=== PATIENT | male | born 1975 | race Caucasian/White ===

== ENCOUNTER 2023-02-25 09:44 | Outpatient (CLI) | payer OTHER, SELFPAY ==
--- NOTE | 2023-02-25 | MR_ITS ---
WS: [id number] MRI CERVICAL SPINE NONCONTRAST AND CONTRAST TECHNIQUE: Sagittal T1, T2 and STIR imaging. Axial T2, gradient, and fiesta imaging. CLINICAL INFORMATION: SARCOIDOSIS COMPARISON: None. FINDINGS: Straightening of the normal cervical lordosis. Cord signal is normal. No suspicious lesions within th e cervical cord. No abnormal gadolinium enhancement. No enhancing lesions. C2-C3: Normal. C3-C4: Normal C4-C5: Mild facet arthropathy. Mild RIGHT foraminal narrowing. C5-C6: Mild to moderate facet arthropathy. Mild bilateral bony foraminal narrowing RIGHT greater than LEFT. C6-C7: Minimal disc osteophytic ridging. Moderate facet arthropathy. Mild bilateral bony foraminal na rrowing. Spinal canal is patent. C7-T1: Mild disc osteophytic ridging. Mild facet arthropathy. Mild LEFT and no significant RIGHT fora nathan narrowing. Visualized brain stem structures: Normal. Prevertebral soft tissues: Normal. MR/MR cervical spine wo/w [id number] IMPRESSION: 1. Cord signal is normal. No suspicious lesions in the cervical cord. No signi ficant cord atrophy. 2. No enhancing lesions within the cervical cord. 3. Mild spondylitic changes described above.
--- NOTE | 2023-02-25 | MR_ITS ---
WS: [id number] MRI LUMBAR SPINE WITH CONTRAST TECHNIQUE: Sagittal T1, T2 and STIR imaging. Axial T1 and T2 imaging. Post gadolinium imaging was obt ained. CLINICAL INFORMATION: SARCOIDOSIS COMPARISON: None. FINDINGS: Normal lumbar alignment. No acute compression. No high-grade central canal stenosis. No abnormal gado linium enhancement. No pachymeningeal enhancement. Normal cauda equina nerve rootlets. L1-L2: Mild facet arthropathy. Spinal canal and foramen are patent. L2-L3: No significant disc bulging. Mild facet arthropathy. Spinal canal and foramen are patent L3-L4: Mild annular bulging. Tiny LEFT foraminal protrusion with mild LEFT foraminal narrowing. RIGHT foramen is patent. Mild to moderate facet arthropathy. Slight contact of the exiting LEFT L3 nerve r oot. L4-L5: Mild annular bulging. Moderate facet arthropathy. Mild LEFT and no significant RIGHT foraminal narrowing. L5-S1: Mild annular bulging. Mild facet arthropathy. Mild RIGHT and no significant LEFT foraminal clarke rowing. Visualized pelvic bony structures: Normal. Paravertebral soft tissues: Normal. MR/MR lumbar spine wo/w con [id number] IMPRESSION: 1. No abnormal enhancement in the distal thoracic cord or cauda equina. 2. Small LEFT foraminal protrusion L3-L4 with contact of the exiting LEFT L3 n erve root with mild LEFT foraminal narrowing. 3. Mild annular bulging L4-L5 with mild LEFT foraminal narrowing. 4. Mild facet arthropathy L3-L5.
--- NOTE | 2023-02-25 | MR_ITS ---
WS: [id number] MRI THORACIC SPINE WITH CONTRAST TECHNIQUE: Sagittal T1, T2 and STIR imaging. Axial T2 imaging. Post gadolinium imaging was obtained. CLINICAL INFORMATION: SARCOIDOSIS COMPARISON: None. FINDINGS: Mild thoracic curve. No acute compression. No high-grade central canal stenosis. Normal pulsation art ifact in the dorsal spinal canal. No enhancing lesions within the thoracic cord. Incidental hemangioma T6 vertebral body. Tiny RIGHT pericentral protrusion T8-T9 without significant central canal stenosis. Mild to moderate facet arthropathy lower thoracic spine. Partially visualized bulky mediastinal and hilar lymphadenopathy. Recommend further evaluation with c hest CT. Bibasilar infiltrates/atelectasis partially visualized. Small RIGHT renal cyst. Adrenal glan ds are normal. MR/MR thoracic spine wo/w [id number] IMPRESSION: 1. Normal thoracic spine. No acute compression. 2. Cord signal is normal. No suspicious lesions within the thoracic cord. No a bnormal enhancing lesions. 3. Tiny RIGHT pericentral protrusion T8-T9 without significant central canal s tenosis. 4. Mild to moderate facet arthropathy lower thoracic spine. 5. Partially visualized bulky mediastinal and hilar lymphadenopathy. Recommend further evaluation chest CT.
[2023-02-25] MEDS: gadobenate dimeglumine 20 mL vial IV (11:34)
== END 2023-02-25 09:45 | disposition home or self-care (01) ==
PROVIDERS: PCP Electrodiagnostic Medicine; Visit Provider Internal Medicine Pulmonary Disease
DX: D86.9 Sarcoidosis, unspecified (principal); R52 Pain, unspecified; R20.0 Anesthesia of skin; M51.24 Other intervertebral disc displacement, thoracic region; M47.894 Other spondylosis, thoracic region
CPT/HCPCS: 72156; 72157; 72158; A9577

== ENCOUNTER 2025-08-02 09:39 | Outpatient (CLI) | payer OTHER, SELFPAY ==
--- NOTE | 2025-08-02 09:49 | CT_ITS ---
WS: [id number] CT chest w con* [id number] HISTORY: PULMONARY SARCOIDOSIS TECHNIQUE: Axial imaging performed through the thorax. Coronal and sagittal reformats are submitted. All CT scans at [facility] use at least one of these dose optimization techniques: automated exposure control; mA and/or kV adjustment per patient size (includes targeted exams where dose is matched to clinical indication); or iterative reconstruction. CONTRAST: Omnipaque 350; 100 mL IV. DLP: 439.64 mGy.cm COMPARISON: None available. Lungs and central airway: Lungs are well aerated. There are a few very small calcified pulmonary nodules scattered throughout the lungs. 2 mm nodule along the minor fissure. No pulmonary mass. Pleura: Normal. No pleural effusion. Heart and pericardium: Normal size heart with no pericardial effusion. Mediastinum and oscar: Extensive mediastinal and paratracheal lymphadenopathy is identified. Largest RIGHT paratracheal lymph node 2.2 cm. Bilateral hilar lymph nodes contain central calcifications. Largest subcarinal lymph node is 2.6 cm. These lymph nodes are most consistent with patient's history of sarcoidosis. Vessels: Normal size aortic and pulmonary artery. No coronary artery calcifications. Chest wall and lower neck: No soft tissue masses. Upper abdomen: Prior cholecystectomy. No adrenal mass. Visualized upper abdomen is negative. Osseous structures: No destructive process. CT/CT chest w con* [id number] IMPRESSION: 1. Mediastinal and bilateral hilar lymphadenopathy consistent with patient's h istory of sarcoidosis. 2. There are a few additional calcified and noncalcified very tiny pulmonary n odules scattered throughout both lungs. Probably also on the basis of sarcoidos is. No mass. 3. No pneumonia. 4. No abnormality noted near the LEFT clavicle in the area of pain. 5. Prior cholecystectomy.
[2025-08-02] MEDS: iohexol 350 mg/mL 500 mL Btl (per mL) IV (10:19)
== END 2025-08-02 09:40 | disposition home or self-care (01) ==
LOC: RAD 09:45
PROVIDERS: PCP Electrodiagnostic Medicine; Visit Provider Electrodiagnostic Medicine
DX: D86.0 Sarcoidosis of lung (principal); R91.8 Other nonspecific abnormal finding of lung field; R59.1 Generalized enlarged lymph nodes; Z90.49 Acquired absence of other specified parts of digestive tract
CPT/HCPCS: 71260

== ENCOUNTER 2025-08-16 07:55 | Outpatient (CLI) | payer OTHER, SELFPAY ==
--- NOTE | 2025-08-16 08:04 | USCV_ITS ---
[place] Age: 50 Gender: M : 1975 Exam Date: 08/16/2025 08:19 Ordering Phys: Ronni Byers DO Technologist: Exam Location: [facility] [place] Indication: cp sob BP: 120 / 70 HR: 63 Rhythm: Sinus Technical Quality: Adequate MEASUREMENTS (Male / Female) Normal Values 2D ECHO LV Diastolic Diameter PLAX 4.4 cm 4.2 - 5.9 / 3.9 - 5.3 cm IVS Diastolic Thickness 1.3 cm 0.6 - 1.0 / 0.6 - 0.9 cm IVS Systolic Thickness 1.5 cm LVPW Diastolic Thickness 1.1 cm 0.6 - 1.0 / 0.6 - 0.9 cm LVPW Systolic Thickness 1.6 cm LVOT Diameter 2.1 cm LV Ejection Fraction 2D Teich 57.8 % LV Ejection Fraction MOD 4C 68.2 % LV Ejection Fraction MOD 2C 68.4 % LV Ejection Fraction 2C AL 68.6 % LA Diameter 3.2 cm RA Systolic Volume 4C AL 39.6 ml RA Systolic Volume 4C MOD 38.3 ml Aorta at Sinotubular Diameter 3.1 cm IVC Diameter 2.2 cm M-MODE LA Ao Ratio MM 0.9 AV Cusp Separation MM 2.2 cm DOPPLER AV Peak Velocity 100.0 cm/s LVOT Peak Velocity 77.0 cm/s AV Area Cont Eq vti 3.1 cm squared AV Area Cont Eq pk 2.6 cm squared MV Peak Velocity 84.0 cm/s MV Area PHT 3.9 cm squared Mitral E to A Ratio 1.3 TV Peak Velocity 172.0 cm/s TR Peak Velocity 205.0 cm/s TR Peak Gradient 16.8 mmHg TV Peak E Velocity 48.0 cm/s PV Peak Velocity 65.5 cm/s FINDINGS Left Ventricle Normal left ventricular size and systolic function, EF 68%. Mild left ventricular hypertrophy. No regional wall motion abnormalities. Right Ventricle Normal right ventricular size and systolic function. Right Atrium Normal right atrial size. Left Atrium Normal left atrial size. IA Septum Normal appearance of the interatrial septum. Mitral Valve No gross abnormalities noted Aortic Valve No gross abnormalities noted Tricuspid Valve No gross abnormalities noted Pulmonic Valve Trace pulmonary valve regurgitation. Pericardium No pericardial effusion. Aorta Normal aortic annulus size. IVC Normal IVC diameter. CONCLUSIONS Normal left ventricular size and systolic function, EF 68%. Mild left ventricular hypertrophy. No regional wall motion abnormalities. Trace pulmonary valve regurgitation. No significant valvular abnormalities. There is no pericardial effusion. No similar previous studies are available for comparison Dr Romina Bishop MD [facility] (Electronically Signed) Final Date: 18 August 2025 13:39 S
== END 2025-08-16 07:56 | disposition home or self-care (01) ==
LOC: RAD 07:57
PROVIDERS: PCP Electrodiagnostic Medicine; Visit Provider Electrodiagnostic Medicine
DX: R01.1 Cardiac murmur, unspecified (principal); I51.7 Cardiomegaly
CPT/HCPCS: 93306